=== PATIENT | female | born 1955 | race Caucasian/White ===

== ENCOUNTER 2019-06-19 12:56 | Inpatient (IN) | payer MEDICAID, OTHER ==
[2019-06-19] MEDS ORDERED: HYDROmorphone 1 MG/ML 1 ML SYRINGE IVP STA (13:20)
[2019-06-19] MEDS ORDERED: KETOROLAC 60 MG/2 ML VIAL IVP STA (13:21)
--- NOTE | 2019-06-19 13:23 | ED ---
General Adult HPI - General Chief complaint: Fall Stated complaint: Fall, hip injury Time Seen by Provider: 06/19/19 13:10 Source: patient, EMS, RN notes reviewed Mode of arrival: EMS Limitations: no limitations - History of Present Illness Initial comments: This is a 64-year-old female who presents emergency department after having fallen at work. Patient states she slipped on some yogurt fell onto her right hip. Patient states she was unable to get up she is unable to move the pain without excruciating right hip pain. Patient denies any other injury patient denies hitting her head patient denies neck pain patient denies any numbness weakness. Patient denies back pain. Patient denies any other extremity pain. - Related Data Home Medications Medication Instructions Recorded Confirmed Calcium Carbonate/Vitamin D3 3 tab PO HS 02/25/15 06/19/19 [Calcium 600-Vit D3 400 Tablet] Magnesium 200 mg PO HS 02/25/15 06/19/19 L.acidoph,Paracasei, B.lactis 1 cap PO HS 05/05/16 06/19/19 [Probiotic] Atorvastatin [Lipitor] 10 mg PO DAILY 06/19/19 06/19/19 Melatonin 5 mg PO HS 06/19/19 06/19/19 Allergies Allergy/AdvReac Type Severity Reaction Status Date / Time tramadol Allergy Itching Verified 06/19/19 13:17 Review of Systems ROS Statement: Those systems with pertinent positive or pertinent negative responses have been documented in the HPI. ROS Other: All systems not noted in ROS Statement are negative. Past Medical History Past Medical History: Cancer, Hyperlipidemia, Supraventricular Tachycardia (SVT) Additional Past Medical History / Comment(s): HX SVT RESOLVED WITH ABLATION, HX BREAST AND UTERINE CANCER, LUMBAR DDD- AFFECTS BOTH LEGS- LT IS WORSE History of Any Multi-Drug Resistant Organisms: None Reported Past Surgical History: Appendectomy, Breast Surgery, Cardiac Ablation, Hysterectomy, Tonsillectomy Additional Past Surgical History / Comment(s): BILAT MASTECTOMY, RT CTR, PAIN CLINIC PROCEDURES Past Anesthesia/Blood Transfusion Reactions: Family Hisory of Malignant Hyperthermia Additional Past Anesthesia/Blood Transfusion Reaction / Comment(s): NIECE HAS HX OF MALIGNANT HYPERTHERMIA Past Psychological History: Depression Smoking Status: Former smoker Past Alcohol Use History: None Reported Past Drug Use History: None Reported - Past Family History Mother Family Medical History: Cancer (Mother had colon cancer and she from dementia at the age of 77) Father Family Medical History: Cancer (Father at age of 70 from lung cancer) Brother(s) Family Medical History: Cancer (Patient has 4 brothers one of them was diagnosed with head and neck cancer and he is a survivor for the past 4 years) Sister(s) Family Medical History: No Reported History (Patient has 3 sisters no major medical problems) Son(s) Family Medical History: No Reported History (Patient has 2 sons no major medical problems) General Exam - General Exam Comments Initial Comments: GENERAL: Patient is well-developed and well-nourished. Patient is nontoxic and well- hydrated and is in moderate distress. ENT: Neck is soft and supple. No significant lymphadenopathy is noted. Neck has full range of motion without eliciting any pain. EYES: The sclera were anicteric and conjunctiva were pink and moist. Extraocular movements were intact and pupils were equal round and reactive to light. Eyelids were unremarkable. PULMONARY: Unlabored respirations. Good breath sounds bilaterally. No audible rales rhonchi or wheezing was noted. CARDIOVASCULAR: There is a regular rate and rhythm without any murmurs gallops or rubs. ABDOMEN: Soft and nontender with normal bowel sounds. SKIN: Skin is clear with no lesions or rashes and otherwise unremarkable. NEUROLOGIC: Patient is alert and oriented x3. Cranial nerves II through XII are grossly intact. Motor and sensory are also intact. Normal speech, volume and content. Symmetrical smile. MUSCULOSKELETAL: Patient has lateral right hip tenderness to palpation. Any movement at all ca uses significant pain in the hip. Unable to assess fully because of the pain LYMPHATICS: No significant lymphadenopathy is noted PSYCHIATRIC: Normal psychiatric evaluation. Limitations: no limitations Course Vital Signs 06/19/19 06/19/19 06/19/19 13:08 14:19 15:34 Temperature 98.2 F 98.0 F Pulse Rate 82 78 87 Respiratory 16 18 18 Rate Blood Pressure 137/80 138/87 138/87 O2 Sat by Pulse 98 99 98 Oximetry Medical Decision Making - Medical Decision Making Right hip fracture intertrochanteric. I spoke with Dr. Felipe Wang will admit her and I will consult Dr. Najera. EKG shows normal sinus rhythm at 88 bpm SC interval is 150 QRS is 102 QT interval 38 QTC is 469. Patient's EKG shows no ST segment elevation or depression or T wave abnormalities are noted. - Lab Data Result diagrams: 06/19/19 14:55 06/19/19 14:55 Lab Results 06/19/19 06/19/19 06/19/19 Range/Units 14:55 14:55 14:55 WBC 11.8 H (3.8-10.6) k/uL RBC 4.24 (3.80-5.40) m/uL Hgb 13.0 (11.4-16.0) gm/dL Hct 38.7 (34.0-46.0) % MCV 91.3 (80.0-100.0) fL MCH 30.7 (25.0-35.0) pg MCHC 33.6 (31.0-37.0) g/dL RDW 12.4 (11.5-15.5) % Plt Count 237 (150-450) k/uL Neutrophils % 82 % Lymphocytes % 10 % Monocytes % 5 % Eosinophils % 1 % Basophils % 2 % Neutrophils # 9.6 H (1.3-7.7) k/uL Lymphocytes # 1.1 (1.0-4.8) k/uL Monocytes # 0.6 (0-1.0) k/uL Eosinophils # 0.2 (0-0.7) k/uL Basophils # 0.2 (0-0.2) k/uL PT 10.0 (9.0-12.0) sec INR 0.9 (<1.2) APTT 19.7 L (22.0-30.0) sec Sodium 136 L (137-145) mmol/L Potassium 4.6 (3.5-5.1) mmol/L Chloride 104 (98-107) mmol/L Carbon Dioxide 23 (22-30) mmol/L Anion Gap 9 mmol/L BUN 22 H (7-17) mg/dL Creatinine 0.62 (0.52-1.04) mg/dL Est GFR (CKD-EPI)AfAm >90 (>60 ml/min/1.73 sqM) Est GFR (CKD-EPI)NonAf >90 (>60 ml/min/1.73 sqM) Glucose 110 H (74-99) mg/dL Calcium 9.7 (8.4-10.2) mg/dL Total Bilirubin 0.5 (0.2-1.3) mg/dL AST 30 (14-36) U/L ALT 12 (9-52) U/L Alkaline Phosphatase 95 (38-126) U/L Total Protein 7.6 (6.3-8.2) g/dL Albumin 4.5 (3.5-5.0) g/dL Disposition Clinical Impression: Intertrochanteric fracture of right hip Disposition: ADMITTED IP TO THIS [facility] Time of Disposition: 15:03
--- NOTE | 2019-06-19 14:12 | XR ---
EXAMINATION TYPE: XR Hip RT and AP Pelvis DATE OF EXAM: 06/19/2019 COMPARISON: NONE HISTORY: Trauma and pain TECHNIQUE: A single AP view of the pelvis is obtained. Two views of the right hip are obtained. FINDINGS: There is an intertrochanteric right proximal femoral fracture with resulting varus deformi ty. No dislocation. Postop changes noted at the lumbosacral junction. Bone mineralization is reduced. IMPRESSION: Intertrochanteric right femoral fracture.
[2019-06-19 15:04] LABS: Basophils # (A) 0.2 k/uL (0-0.2); Basophils % (A) 2 %; Eosinophils # (A) 0.2 k/uL (0-0.7); Eosinophils % (A) 1 %; HCT 38.7 % (34.0-46.0); Lymphocytes # (A) 1.1 k/uL (1.0-4.8); Lymphocytes % (A) 10 %; MCH 30.7 pg (25.0-35.0); MCHC 33.6 g/dL (31.0-37.0); MCV 91.3 fL (80.0-100.0); Mean Platelet Volume 7.4; Monocytes # (A) 0.6 k/uL (0-1.0); Monocytes % (A) 5 %; Neutrophils # (A) 9.6 k/uL (1.3-7.7); Neutrophils % (A) 82 %; Platelet Count 237 k/uL (150-450); RBC 4.24 m/uL (3.80-5.40); RDW 12.4 % (11.5-15.5); WBC 11.8 k/uL (3.8-10.6)
[2019-06-19] MEDS ORDERED: SODIUM CHLORIDE 0.9% 1,000 ML IV ONE (15:04)
[2019-06-19 15:11] LABS: ALT 12 U/L (9-52); AST 30 U/L (14-36); African American GFR (CKD) >90 (>60 ml/min/1.73 sqM); Albumin 4.5 g/dL (3.5-5.0); Alkaline Phosphatase 95 U/L (38-126); Anion Gap 9 mmol/L; Blood Urea Nitrogen 22 mg/dL (7-17); Calcium 9.7 mg/dL (8.4-10.2); Carbon Dioxide 23 mmol/L (22-30); Chloride 104 mmol/L (98-107); Glucose 110 mg/dL (74-99); Potassium 4.6 mmol/L (3.5-5.1); Sodium 136 mmol/L (137-145); Total Bilirubin 0.5 mg/dL (0.2-1.3); Total Protein 7.6 g/dL (6.3-8.2)
[2019-06-19 15:24] LABS: INR 0.9 (<1.2)
--- NOTE | 2019-06-19 15:26 | XR ---
EXAMINATION TYPE: XR chest 1V portable DATE OF EXAM: 06/19/2019 COMPARISON: 02/09/2016 HISTORY: Chest pain. Hip fracture. TECHNIQUE: Single frontal view of the chest is obtained. FINDINGS: Old healed fracture deformities of the right posterior mid ribs. New diffuse mild pulmonar y vascular congestion. Cardiomediastinal silhouette is upper limits of normal. No focal consolidation , pleural effusion or pneumothorax. IMPRESSION: New fluid overload with mild pulmonary vascular congestion throughout.
[2019-06-19 15:29] LABS: Partial Thromboplastin Time 19.7 sec (22.0-30.0)
[2019-06-19 16:03] VITALS: BMI 28.6
[2019-06-19] MEDS: HYDROmorphone 1 MG/ML 1 ML SYRINGE IVP PRN ×2 (17:19→22:33)
--- NOTE | 2019-06-19 17:54 | P.HPOR ---
History of Present Illness H&P Date: 06/19/19 Chief Complaint: Right hip fracture 64-year-old patient who slipped and fell on the floor earlier today injuring her right hip. She was found to have a intertrochanteric fracture of the right hip. She was admitted for probable surgical intervention. She reports no other c urrent orthopedic complaints. Review of Systems Constitutional: Reports as per HPI Past Medical History Past Medical History: Cancer, Hyperlipidemia, Supraventricular Tachycardia (SVT) Additional Past Medical History / Comment(s): HX SVT RESOLVED WITH ABLATION, HX BREAST AND UTERINE CANCER, LUMBAR DDD- AFFECTS BOTH LEGS- LT IS WORSE History of Any Multi-Drug Resistant Organisms: None Reported Past Surgical History: Appendectomy, Breast Surgery, Cardiac Ablation, Hysterectomy, Tonsillectomy Additional Past Surgical History / Comment(s): BILAT MASTECTOMY, RT CTR, PAIN CLINIC PROCEDURES Past Anesthesia/Blood Transfusion Reactions: Family Hisory of Malignant Hyperthermia Additional Past Anesthesia/Blood Transfusion Reaction / Comment(s): NIECE HAS HX OF MALIGNANT HYPERTHERMIA Past Psychological History: Depression Smoking Status: Former smoker Past Alcohol Use History: None Reported Past Drug Use History: None Reported - Past Family History Mother Family Medical History: Cancer (Mother had colon cancer and she from dementia at the age of 77) Additional Family Medical History / Comment(s): Mother had colon cancer. She from dementia at the age of 77yrs. Father Family Medical History: Cancer (Father at age of 70 from lung cancer) Additional Family Medical History / Comment(s): Father at the age of 70yrs with lung cancer. Brother(s) Family Medical History: Cancer (Patient has 4 brothers one of them was diagnosed with head and neck cancer and he is a survivor for the past 4 years) Additional Family Medical History / Comment(s): Brother had head and neck cancer. He is a survivor. Sister(s) Family Medical History: No Reported History (Patient has 3 sisters no major medical problems) Son(s) Family Medical History: No Reported History (Patient has 2 sons no major medical problems) Medications and Allergies Home Medications Medication Instructions Recorded Confirmed Type Calcium Carbonate/Vitamin D3 3 tab PO HS 02/25/15 06/19/19 History [Calcium 600-Vit D3 400 Tablet] Magnesium 200 mg PO HS 02/25/15 06/19/19 History L.acidoph,Paracasei, B.lactis 1 cap PO HS 05/05/16 06/19/19 History [Probiotic] Atorvastatin [Lipitor] 10 mg PO DAILY 06/19/19 06/19/19 History Melatonin 5 mg PO HS 06/19/19 06/19/19 History Allergies Allergy/AdvReac Type Severity Reaction Status Date / Time tramadol Allergy Itching Verified 06/19/19 13:17 Physical Examination Osteopathic Statement: *. No significant issues noted on an osteopathic structu ral exam other than those noted in the History and Physical/Consult. There is shortening and external rotation of the right lower extremity. There is diffuse tenderness about the right hip girdle. There is severe pain with any attempted range of motion of the right hip. Gentle log rolling of the left hip is pain-free. Distal neurovascular exams are intact both lower extremities. Results - Labs Labs: Abnormal Lab Results - Last 24 Hours (Table) 06/19/19 06/19/19 06/19/19 Range/Units 14:55 14:55 14:55 WBC 11.8 H (3.8-10.6) k/uL Neutrophils # 9.6 H (1.3-7.7) k/uL APTT 19.7 L (22.0-30.0) sec Sodium 136 L (137-145) mmol/L BUN 22 H (7-17) mg/dL Glucose 110 H (74-99) mg/dL H & H 06/19/19 Range/Units 14:55 Hgb 13.0 (11.4-16.0) gm/dL Hct 38.7 (34.0-46.0) % Coagulation 06/19/19 Range/Units 14:55 INR 0.9 (<1.2) Result Diagrams: 06/19/19 14:55 06/19/19 14:55 - Diagnostic results Hip x-ray: image reviewed (Right hip intertrochanteric fracture) Assessment and Plan Assessment: Right hip intertrochanteric fracture Plan: We will proceed with trochanteric nailing right hip tomorrow. I did review the procedure, risks, complications and recovery with both the patient and her . They understood the recommendation. They were agreeable with the procedure. Consent will be obtained. All questions were answered to their satisfaction. Time with Patient: Less than 30
[2019-06-20] MEDS: HYDROmorphone 1 MG/ML 1 ML SYRINGE IVP PRN ×3 (05:37→17:46)
--- NOTE | 2019-06-20 12:44 | P.CONS ---
History of Present Illness - Reason for Consult Consult date: 06/20/19 Medical clearance for surgery medical management Requesting physician: Pantera Wang - Chief Complaint Right hip fracture, osteoporosis, breast cancer, hyperlipidemia - History of Present Illness 64-year-old female one of Dr. Najera's patient with past medical history of breast cancer and uterine cancer post bilateral mastectomy and total hysterectomy who also known to have history of SVT post-ablation therapy Dr. Blanco previously with no sign of arrhythmia lately. Patient slip and fall at home landed on her right hip developed to have severe pain in the groin area not been able to stand up ambulate and walk with worsening pain ended up coming to [facility] emergency department at [facility] x-ray of the hip showed intratrochanteric fracture. Patient was admitted to Dr. Wang service and we will plan to go for open reduction internal fixation today. 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 No chest pain or angina, no episode of palpitation, no sign and symptom of significant shortness of breath or any complaint. Review of Systems CONSTITUTIONAL: Well-developed no acute respiratory distress. EYES: No icterus sclerae, no conjunctivitis. EARS, NOSE, MOUTH, THROAT, and FACE: No sore throat, lymphadenopathy, carotid bruits or deformity. RESPIRATORY: No SOB cough or wheezes. CARDIOVASCULAR: No CP, Palpitation, PND, Orthopnea, or angina. GASTROINTESTINAL: No Abd pain, Nausea or vomiting, no Diarrhea or constipation, No GI Bleed, no distention or masses. GENITOURINARY: Negative for Hematuria or UTI, no kidney stones. INTEGUMENT/BREAST: Negative for any muscular injury with mild osteoarthritis.. HEMATOLOGIC/LYMPHATIC: Negative for bleed or purpura. MUSCULOSKELTAL: Negative for Myalgia or arthralgia. Positive right hip pain and discomfort NEURLOGICAL: No LOC, Sz or syncope, blurred vision dizziness or abnormality.. BEHAVIORAL/PSYCH: Negative. ENDOCRINE: Negative. Past Medical History Past Medical History: Cancer, Hyperlipidemia, Supraventricular Tachycardia (SVT) Additional Past Medical History / Comment(s): HX SVT RESOLVED WITH ABLATION, HX BREAST AND UTERINE CANCER, LUMBAR DDD- AFFECTS BOTH LEGS- LT IS WORSE History of Any Multi-Drug Resistant Organisms: None Reported Past Surgical History: Appendectomy, Breast Surgery, Cardiac Ablation, Hysterectomy, Tonsillectomy Additional Past Surgical History / Comment(s): BILAT MASTECTOMY, RT CTR, PAIN CLINIC PROCEDURES Past Anesthesia/Blood Transfusion Reactions: Family Hisory of Malignant Hyperthermia Additional Past Anesthesia/Blood Transfusion Reaction / Comm: NIECE HAS HX OF MALIGNANT HYPERTHERMIA Past Psychological History: Depression Smoking Status: Former smoker Past Alcohol Use History: None Reported Past Drug Use History: None Reported - Past Family History Mother Family Medical History: Cancer (Mother had colon cancer and she from dementia at the age of 77) Additional Family Medical History / Comment(s): Mother had colon cancer. She from dementia at the age of 77yrs. Father Family Medical History: Cancer (Father at age of 70 from lung cancer) Additional Family Medical History / Comment(s): Father at the age of 70yrs with lung cancer. Brother(s) Family Medical History: Cancer (Patient has 4 brothers one of them was diagnosed with head and neck cancer and he is a survivor for the past 4 years) Additional Family Medical History / Comment(s): Brother had head and neck cancer. He is a survivor. Sister(s) Family Medical History: No Reported History (Patient has 3 sisters no major medi guzman problems) Son(s) Family Medical History: No Reported History (Patient has 2 sons no major medical problems) Medications and Allergies Home Medications Medication Instructions Recorded Confirmed Type Calcium Carbonate/Vitamin D3 3 tab PO HS 02/25/15 06/19/19 History [Calcium 600-Vit D3 400 Tablet] Magnesium 200 mg PO HS 02/25/15 06/19/19 History L.acidoph,Paracasei, B.lactis 1 cap PO HS 05/05/16 06/19/19 History [Probiotic] Atorvastatin [Lipitor] 10 mg PO DAILY 06/19/19 06/19/19 History Melatonin 5 mg PO HS 06/19/19 06/19/19 History Allergies Allergy/AdvReac Type Severity Reaction Status Date / Time tramadol Allergy Itching Verified 06/19/19 13:17 Physical Exam Vitals: Vital Signs Temp Pulse Pulse Resp BP BP Pulse Ox 06/19/19 19:42 99.1 F 85 18 106/75 95 06/19/19 17:29 98.7 F 85 16 116/73 97 09/11/19 15:34 98.0 F 87 18 138/87 98 06/19/19 14:19 78 18 138/87 99 06/19/19 13:08 98.2 F 82 16 137/80 98 Intake and Output 06/19/19 06/19/19 06/20/19 14:59 22:59 06:59 Intake Total 240 240 Output Total 1300 Balance -1060 240 Intake: Oral 240 240 Output: Urine 1300 Other: Voiding Method Indwelling Catheter Weight 75.659 kg General Appearance: Alert, cooperative, no distress, appears stated age. Neck HEENT: Supple, no lymphadenopathy, no thyroid enlargement, no carotid bruits. Lungs: Clear to auscultation without crackles or wheezes no rhonchi, no deformity. Chest Wall: Chest wall normal expansion with deep inspiration no tenderness and no deformity was found on exam, no costochondral pain or discomfort. Heart: Regular rate and rhythm, S1, S2 normal, no murmur, rub or gallop. Back: Symmetric, no curvature, ROM normal, no CVA tenderness. Abdomen: Soft, non-tender, bowel sounds active all four quadrants, no masses, no organomegaly. Extremities: Right hip is externally rotated much shorter than the left side with significant pain and discomfort and swelling in the groin area compared to the left side with typical sign and symptom of fracture. Pulses: 2+ and symmetric. Skin: Skin color, texture, tugor normal, no rashes or lesions. Neurologic: Alert oriented x3 cranial nerves II through XII intact, no motor deficit, no abnormal balance or gait. Results CBC & Chem 7: 06/19/19 14:55 06/19/19 14:55 Labs: Abnormal Lab Results - Last 24 Hours (Table) 06/19/19 06/19/19 06/19/19 Range/Units 14:55 14:55 14:55 WBC 11.8 H (3.8-10.6) k/uL Neutrophils # 9.6 H (1.3-7.7) k/uL APTT 19.7 L (22.0-30.0) sec Sodium 136 L (137-145) mmol/L BUN 22 H (7-17) mg/dL Glucose 110 H (74-99) mg/dL Assessment and Plan Plan: 1 right hip fracture with intratrochanteric fracture patient will be going for open reduction internal fixation, no absolute contraindication for surgery, no need for any further desiccation for this type of surgery, patient will be watch hemodynamically after surgery. Even patient was seen cardiology up till few years ago for her SVT no cardiac testing lately but no sign and symptoms ongoing I don't see any reason to do any stress test or echo before this surgery. 2 severe osteoporosis: Review bone density from 2014 showed T score below -2.7, patient is very hesitant about biphosphonate and up till now had refused this medication. Apparently had seen Dr. Corin Luis in the past and was prescribed Forteo refused to take it. A dressing with patient and her the value of osteoporosis treatment for further protection against smaller injury causing fracture or compression vertebrae patient is against it at this point. 3 hyperlipidemia: Has been on atorvastatin 10 mg daily resume medication. 4 history of SVT: Post ablation was seen cardiology has not been on any beta michelle lately no sign of arrhythmia EKG will be reviewed this time before surgery. 5 GI prophylaxis: Patient will be on Pepcid 20 mg daily. 6 DVT prophylaxis: Patient will be on aspirin on heparin subcutaneous after surgery. CODE STATUS: Full code. Dr. Wang thank you very much for the consult patient is very clear for surgery from medical standpoint if I can be any further help to please let me know.
[2019-06-20] MEDS ORDERED: IV FLUID CONTINUATION 1,000 ML IV ONE (12:51)
[2019-06-20] MEDS ORDERED: ONDANSETRON 4 MG/2 ML VIAL IVP ONE ×2 (13:07→15:36)
[2019-06-20] MEDS: MIDAZOLAM (PF) 2 MG/2 ML VIAL IV ONE ×2 (13:26→13:50)
[2019-06-20] MEDS ORDERED: fentaNYL (PF) 50 MCG/ML 2 ML AMP IV ONE (13:29)
[2019-06-20] MEDS ORDERED: PHENYLEPHRINE-0.9% NACL SYG 1 MG/10 ML SYRINGE ONE (13:44)
[2019-06-20] MEDS ORDERED: fentaNYL (PF) 50 MCG/ML 2 ML AMP ONE (13:44)
[2019-06-20] MEDS ORDERED: ePHEDrine SULFATE/0.9% NACL/PF 50 MG/5 ML SYRINGE IV ONE (13:44)
[2019-06-20] MEDS ORDERED: MIDAZOLAM 2 MG/2 ML VIAL ONE (13:44)
[2019-06-20] MEDS ORDERED: PROPOFOL 10 MG/ML 20 ML VIAL IV ONE (13:44)
[2019-06-20] MEDS ORDERED: SODIUM CHLORIDE 0.9% 100 ML with ceFAZolin 2,000 MG IV ONE ×2 (13:53)
[2019-06-20] MEDS ORDERED: LACTATED RINGERS 1,000 ML IV ONE (14:15)
[2019-06-20] MEDS ORDERED: ceFAZolin 1,000 MG in SODIUM CHLORIDE 0.9% 1,000 ML IRRIGATION ONE (15:05)
--- NOTE | 2019-06-20 15:10 | P.OP ---
Date of Procedure: 06/20/19 Preoperative Diagnosis: Right hip intertrochanteric fracture Postoperative Diagnosis: Same Procedure(s) Performed: Trochanteric nailing right hip intertrochanteric fracture Implants: Synthes 11 mm/125 titanium cannulated trochanteric femoral [id number] mm with a 11 x 90 mm helical blade and a 36 mm distal locking screw Anesthesia: spinal Surgeon: Pantera Wang Estimated Blood Loss (ml): 30 Pathology: none sent Condition: stable Disposition: PACU Indications for Procedure: 64-year-old patient seen with a right hip intertrochanteric fracture. I recommended trochanteric nailing. I discussed the procedure, risks, complications and recovery. The patient was agreeable and consent was obtained. Operative Findings: See description of procedure Description of Procedure: The patient was taken to the operative suite. The patient underwent a spinal anesthetic by the department of anesthesia. The patient was transferred to the [place] table. The patient received preoperative IV antibiotics. The left lower extremity is placed in a well-leg hyman. The right lower chest placed in longitudinal traction with adduction and slight internal rotation. C-arm was brought into the operative field confirming near anatomic alignment of the fracture. The C-arm was pulled back. The right hip was prepped and draped in the normal sterile orthopedic fashion. I made an incision beginning at the tip of the greater trochanter extending distally sharply through skin measuring approximately 4 cm. I dissected down to the IT band. I incised the IT band. I reduced the guidewire into the proximal trochanteric tip. C-arm confirmed adequate positioning in the guidewires introduced. I checked the position in AP and lateral intraoperative imaging of the guidewires adequate position. I now created an entry hole with a soft tissue protector. I now introduced a 11 mm x 170 mm 1 and 25 trochanteric nail and tapped down the position. This was confirmed on AP and lateral operative imaging be adequately position. I now with the Jose Carlos Serrano made a skin incision for placement of our helical blade. The guidewires introduced and we confirmed adequate positioning into the head neck complex. We reamed over the guidewire introduced the helical blade with good fixation noted. We locked our helical blade set screw. I now used the outrigger to make an incision for distal locking screw. The guide passed into position and appropriate distal locking screw hole was made. A 36 mm distal locking screw was introduced with good fixation and purchase noted. The entire our goal was now removed. I evaluated entire construct under AP and lateral operative imaging noted adequate positioning of the components. Spot films were obtained to document that. All wounds were irrigated. The IT band was repaired with #1 Vicryl. The subcu soft tissues of all 3 incisions were with 2-0 Vicryl. The skin is proximal with running subcuticular sutures with Steri-Strips and skin glue. Sterile dressings were applied. The patient was awakened transferred to a bed and then recovery having tolerated the procedure well.
[2019-06-20] MEDS ORDERED: HYDROcodone/APAP 5-325MG 1 EACH TAB PO PRN (15:11)
[2019-06-20] MEDS ORDERED: NALOXONE 0.4 MG/ML 1 ML VIAL IV PRN (15:11)
--- NOTE | 2019-06-20 15:25 | FL ---
EXAMINATION TYPE: FL guidance operating room, XR Hip Limited RT DATE OF EXAM: 06/20/2019 CLINICAL HISTORY: Right hip fracture. TECHNIQUE: Fluoroscopy. Limited intraoperative views right hip. COMPARISON: Pelvic and hip xray from yesterday. FINDINGS: Fluoroscopic guidance was provided during open reduction internal fixation procedure perfo rmed by Dr. Wang. A total of 33 seconds of fluoroscopic time was utilized during the procedure and two spot intraoperative fluoroscopic images are acquired. Images acquired show placement of femoral fixating nisa with distal transverse screw and femoral neck fixating screw through displaced intertrochanteric fracture right femur. Satisfactory alignment is se en after reduction and fixation. IMPRESSION: As Above.
[2019-06-20] MEDS ORDERED: HYDROmorphone 1 MG/ML 1 ML SYRINGE IVP ONE ×2 (15:36→15:45)
[2019-06-20] MEDS ORDERED: MEPERIDINE 50 MG/ML SYRINGE IVP ONE (15:45)
[2019-06-20] MEDS: LACTATED RINGERS 1,000 ML IV SCH (15:55)
[2019-06-20] MEDS: ONDANSETRON 4 MG/2 ML VIAL IVP PRN (17:44)
[2019-06-20 18:24] LABS: Basophils % (A) 0 %; Eosinophils # (A) 0.1 k/uL (0-0.7); Eosinophils % (A) 1 %; HCT 35.7 % (34.0-46.0); HGB 11.8 gm/dL (11.4-16.0); Lymphocytes # (A) 1.1 k/uL (1.0-4.8); Lymphocytes % (A) 11 %; MCH 30.5 pg (25.0-35.0); MCV 92.6 fL (80.0-100.0); Mean Platelet Volume 7.5; Monocytes # (A) 0.5 k/uL (0-1.0); Monocytes % (A) 5 %; Neutrophils # (A) 8.1 k/uL (1.3-7.7); Neutrophils % (A) 82 %; Platelet Count 190 k/uL (150-450); RBC 3.85 m/uL (3.80-5.40); RDW 13.7 % (11.5-15.5); WBC 9.9 k/uL (3.8-10.6)
[2019-06-20] MEDS: MAGNESIUM OXIDE 400 MG TAB PO SCH (20:30)
[2019-06-20] MEDS: MELATONIN 5 MG TABLET PO SCH (20:30)
[2019-06-20] MEDS: CALCIUM CARB-VIT D 500MG-200UN 1 EACH TAB PO SCH (20:30)
[2019-06-20] MEDS: LACTOBACILLUS ACIDOPH & BULGAR 1 EACH PACKET PO SCH (20:30)
[2019-06-20] MEDS: HYDROcodone/APAP 5-325MG 1 EACH TAB PO PRN (20:30)
[2019-06-20] MEDS: SENNOSIDES-DOCUSATE SODIUM 1 EACH TAB PO SCH (20:30)
[2019-06-20] MEDS: HYDROmorphone 0.5 MG/0.5 ML SYRINGE IVP PRN (22:49)
[2019-06-21] MEDS: HYDROcodone/APAP 5-325MG 1 EACH TAB PO PRN ×4 (05:00→23:09)
[2019-06-21] MEDS: LACTATED RINGERS 1,000 ML IV SCH ×2 (05:01→16:01)
[2019-06-21] MEDS: ENOXAPARIN 40 MG/0.4 ML SYRINGE SQ SCH (08:01)
[2019-06-21] MEDS: ATORVASTATIN 10 MG TAB PO SCH (08:01)
--- NOTE | 2019-06-21 12:46 | P.PN ---
Progress Note - Text Progress Note Date: 06/21/19 Patient seen sitting up in chair. She reports some pain in her right hip although it is better than preoperatively at this point. She has no new complaints. Her incisions are stable. Gentle log rolling of her hip is without significant pain. Homans and John or negative. Distal neurovascular exam is intact. Impression: Status post trochanteric nailing right hip Plan: DVT prophylaxis Medical management Physical therapy
--- NOTE | 2019-06-21 13:40 | P.CONS ---
History of Present Illness - Chief Complaint Walking difficulty - History of Present Illness I had the opportunity see patient for inpatient rehab consultation with regard to walking difficulty. Patient was admitted June 19 status post slip and fall at home and right hip pain. X-ray demonstrated intertrochanteric Fracture. Gibson Wang June 20 underwent IT nail. Seen by Dr. Braswell for medical. Chest x-ray demonstrates mild congestion. PT reports minimal assistance for functional mo bility. OT reports supervision for upper dressing and moderate assistance for lower dressing, minimal assistance for bathing and toileting and minimal moderate assistance functional mobility. Previous functional history as elicited from patient: 64-year-old right-handed white female who is lives in one floor home with . retired. 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 Describes independent with cooking, laundry, driving, standing shower and gait without device. Dr. Najera is regular doctor. Denies tobacco but has rare drink. Family history of father with cancer. Review of Systems Review of systems: ENT: Denies sneezes or discharge. Eyes: Denies discharge or photophobia. Cardiac: Denies chest pain or palpitation. Pulmonary: Denies cough or shortness of breath. Breast: Denies discharge or lumps. Gastrointestinal: Denies nausea, emesis, constipation, diarrhea. Genitourinary: Denies discharge or frequency. Musculoskeletal: Right hip discomfort. Neurologic: Denies motor or sensory change. Endocrine: Denies shakes or sweats. Oncology: Denies cancers. Dermatologic: Denies rash, itching, pruritus. ALLERGY/immunology: Denies sneezes, rashes. Past Medical History Past Medical History: Cancer, Hyperlipidemia, Supraventricular Tachycardia (SVT) Additional Past Medical History / Comment(s): HX SVT RESOLVED WITH ABLATION, HX BREAST AND UTERINE CANCER, LUMBAR DDD- AFFECTS BOTH LEGS- LT IS WORSE History of Any Multi-Drug Resistant Organisms: None Reported Past Surgical History: Appendectomy, Breast Surgery, Cardiac Ablation, Hysterectomy, Tonsillectomy Additional Past Surgical History / Comment(s): BILAT MASTECTOMY, RT CTR, PAIN CLINIC PROCEDURES Past Anesthesia/Blood Transfusion Reactions: Family Hisory of Malignant Hyperthermia Additional Past Anesthesia/Blood Transfusion Reaction / Comm: NIECE HAS HX OF MALIGNANT HYPERTHERMIA Past Psychological History: Depression Smoking Status: Former smoker Past Alcohol Use History: None Reported Past Drug Use History: None Reported - Past Family History Mother Family Medical History: Cancer (Mother had colon cancer and she from dementia at the age of 77) Additional Family Medical History / Comment(s): Mother had colon cancer. She from dementia at the age of 77yrs. Father Family Medical History: Cancer (Father at age of 70 from lung cancer) Additional Family Medical History / Comment(s): Father at the age of 70yrs with lung cancer. Brother(s) Family Medical History: Cancer (Patient has 4 brothers one of them was diagnosed with head and neck cancer and he is a survivor for the past 4 years) Additional Family Medical History / Comment(s): Brother had head and neck cancer. He is a survivor. Sister(s) Family Medical History: No Reported History (Patient has 3 sisters no major medical problems) Son(s) Family Medical History: No Reported History (Patient has 2 sons no major medical problems) Medications and Allergies Home Medications Medication Instructions Recorded Confirmed Type Calcium Carbonate/Vitamin D3 3 tab PO HS 02/25/15 06/19/19 History [Calcium 600-Vit D3 400 Tablet] Magnesium 200 mg PO HS 02/25/15 06/19/19 History L.acidoph,Paracasei, B.lactis 1 cap PO HS 05/05/16 06/19/19 History [Probiotic] Atorvastatin [Lipitor] 10 mg PO DAILY 06/19/19 06/19/19 History Melatonin 5 mg PO HS 06/19/19 06/19/19 History Sennosides-Docusate Sodium 2 each PO HS tab 06/21/19 Rx [Senokot-S] Allergies Allergy/AdvReac Type Severity Reaction Status Date / Time tramadol Allergy Itching Verified 06/19/19 13:17 Physical Exam Vitals: Vital Signs Temp Pulse Pulse Resp BP Pulse Ox 06/21/19 08:00 16 06/21/19 07:05 98.5 F 91 16 107/65 92 L 06/21/19 02:38 98.7 F 91 18 105/64 92 L 06/20/19 23:00 18 06/20/19 20:14 98.3 F 90 16 103/63 95 06/20/19 19:20 18 06/20/19 18:00 90 107/62 06/20/19 17:45 80 121/72 06/20/19 17:30 84 118/71 06/20/19 17:15 81 120/67 06/20/19 17:00 84 113/70 06/20/19 16:45 75 98/64 06/20/19 16:30 88 102/65 06/20/19 16:15 97.5 F L 89 16 107/66 95 06/20/19 15:45 84 14 112/59 96 06/20/19 15:30 96 16 117/61 92 L 06/20/19 15:24 97.7 F 100 16 118/66 92 L Intake and Output 06/20/19 06/21/19 06/21/19 22:59 06:59 14:59 Intake Total 1200 296 Output Total 130 1425 300 Balance 1070 -1425 -4 Intake: IV 1200 Oral 296 Output: Urine 100 1425 300 Estimated Blood Loss 30 Other: Voiding Method Indwelling Catheter Indwelling Catheter Bedside Commode Bedpan # Voids 1 Skin: Good color, texture, turgor. General: Medium build and comfortable appearance. Head: Normocephalic, atraumatic. Eyes: Symmetric. Pupils equal round. Ears: Symmetric. Hearing within normal limits. Mouth: Clear. Neck: Supple. Carotid without bruit. Cardiac: Regular rate and rhythm. Lungs: Clear anteriorly and posteriorly. Abdomen: Soft active nontender. Extremities: Normal tone. Neurological: Mental status: Alert, cooperative, pleasant. Cranial nerves: Symmetric facial tone and trapezius. Motor: Normal strength and isolation all 4 limbs. But unable to elevate right leg due to discomfort and hip. Sensation: Intact throughout. DTRs: Symmetric and equal throughout. Mobility: Sits and stands with assistance. Results CBC & Chem 7: 06/20/19 17:53 06/19/19 14:55 Labs: Abnormal Lab Results - Last 24 Hours (Table) 06/20/19 Range/Units 17:53 Neutrophils # 8.1 H (1.3-7.7) k/uL Assessment and Plan Plan: Impression: 1. Walking only. 2. Right hip IT fracture status post nail. 3. Disability. 4. History of SVT. 5. History of cancer. Comments and plan: At this time PT and OT are ongoing. Safety concerns noted. Have discussed possible inpatient rehab with patient and both seem agreeable. Orthopedist is apparently discussed possible transfer for inpatient rehab on Monday which seems reasonable.
--- NOTE | 2019-06-21 15:04 | P.PN ---
Subjective Progress Note Date: 06/21/19 64-year-old female one of Dr. Najera's patient with past medical history of breast cancer and uterine cancer post bilateral mastectomy and total hysterectomy who also known to have history of SVT post-ablation therapy Dr. Blanco previously with no sign of arrhythmia lately. Patient slip and fall at home landed on her right hip developed to have severe pain in the groin area not been able to stand up ambulate and walk with worsening pain ended up coming to the emergency department at [facility] x-ray of the hip showed intratrochanteric fracture. Patient was admitted to Dr. Wang service and we will plan to go for open reduction internal fixation today. 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 No chest pain or angina, no episode of palpitation, no sign and symptom of significant shortness of breath or any complaint. 06/21: Patient is status post trochanteric nailing right hip, postop day #1. The patient has had no postop complications. She is having some pain to the hip, expected. Today she will start working with physical therapy. Discussed discharge planning and she is interested in inpatient rehab and consult will be placed with Dr. Santiago. Patient has been afebrile, heart rate 97, blood pressure 113/60, pulse ox 92% on room air. Objective - Vital Signs Vital signs: Vital Signs Temp 98.5 F 06/21/19 07:05 Pulse 91 06/21/19 07:05 Resp 16 06/21/19 07:05 BP 107/65 06/21/19 07:05 Pulse Ox 92 L 06/21/19 07:05 Intake & Output 06/20/19 06/21/19 06/21/19 18:59 06:59 18:59 Intake Total 3000 Output Total 730 1425 Balance 2270 -1425 Intake: IV 3000 Output: Urine 700 1425 Estimated Blood Loss 30 Other: Voiding Method Indwelling Catheter Indwelling Catheter - Exam Review of Systems CONSTITUTIONAL: Well-developed no acute respiratory distress. Denies fever, denies chills EYES: No icterus sclerae, no conjunctivitis. EARS, NOSE, MOUTH, THROAT, and FACE: No sore throat, lymphadenopathy, carotid bruits or deformity. RESPIRATORY: No SOB cough or wheezes. CARDIOVASCULAR: No CP, Palpitation, PND, Orthopnea, or angina. GASTROINTESTINAL: No Abd pain, Nausea or vomiting, no Diarrhea or constipation, No GI Bleed, no distention or masses. GENITOURINARY: Negative for Hematuria or UTI, no kidney stones. INTEGUMENT/BREAST: Negative for any muscular injury with mild osteoarthritis.. HEMATOLOGIC/LYMPHATIC: Negative for bleed or purpura. MUSCULOSKELTAL: Negative for Myalgia or arthralgia. Positive right hip pain and discomfort NEURLOGICAL: No LOC, Sz or syncope, blurred vision dizziness or abnormality. BEHAVIORAL/PSYCH: Negative. ENDOCRINE: Negative. General Appearance: Alert, cooperative, no distress, appears stated age. Neck HEENT: Supple, no lymphadenopathy, no thyroid enlargement, no carotid bruits. Lungs: Clear to auscultation without crackles or wheezes no rhonchi, no deformity. Chest Wall: Chest wall normal expansion with deep inspiration no tenderness and no deformity was found on exam, no costochondral pain or discomfort. Heart: Regular rate and rhythm, S1, S2 normal, no murmur, rub or gallop. Back: Symmetric, no curvature, ROM normal, no CVA tenderness. Abdomen: Soft, non-tender, bowel sounds active all four quadrants, no masses, no organomegaly. Extremities: Right hip with small dressing in place. No breakthrough bleeding or drainage.. Pulses: 2+ and symmetric. Skin: Skin color, texture, tugor normal, no rashes or lesions. Neurologic: Alert oriented x3 cranial nerves II through XII intact, no motor deficit, no abnormal balance or gait. - Labs CBC & Chem 7: 06/20/19 17:53 06/19/19 14:55 Labs: Abnormal Lab Results - Last 24 Hours (Table) 06/20/19 Range/Units 17:53 Neutrophils # 8.1 H (1.3-7.7) k/uL Assessment and Plan Plan: 1 right hip fracture with intratrochanteric fracture. Status post trochanteric nailing right hip. Postoperative day #1. Patient has had no postop complication. Continue Lovenox for DVT prophylaxis. Continue incentive spirometry to reduce incidence of atelectasis and hospital-acquired pneumonia. Continue current pain management per orthopedics. PT and OT. 2 severe osteoporosis: Review bone density from 2015 showed T score below -2.7, patient is very hesitant about biphosphonate and up till now had refused this medication. Apparently had seen Dr. Corin Luis in the past and was prescribed Forteo refused to take it. Addressed with patient and her the value of osteoporosis treatment for further protection against smaller injury causing fracture or compression vertebrae patient is against it at this point. 3 hyperlipidemia: Has been on atorvastatin 10 mg daily resume medication. 4 history of SVT: Post ablation was seen cardiology has not been on any beta michelle lately no sign of arrhythmia EKG will be reviewed this time before surge ry. 5 GI prophylaxis: Patient will be on Pepcid 20 mg daily. 6 DVT prophylaxis: Patient will be on aspirin on heparin subcutaneous after surgery. CODE STATUS: Full code. Discharge plan: Consult with Dr. Santiago for possible inpatient rehab Impression and plan of care have been directed as dictated by the signing physician. Tia Whelan nurse practitioner acting as scribe for signing physician.
[2019-06-21] MEDS: MAGNESIUM OXIDE 400 MG TAB PO SCH (21:06)
[2019-06-21] MEDS: SENNOSIDES-DOCUSATE SODIUM 1 EACH TAB PO SCH (21:07)
[2019-06-21] MEDS: MELATONIN 5 MG TABLET PO SCH (21:08)
[2019-06-21] MEDS: CALCIUM CARB-VIT D 500MG-200UN 1 EACH TAB PO SCH (21:08)
[2019-06-21] MEDS: LACTOBACILLUS ACIDOPH & BULGAR 1 EACH PACKET PO SCH (21:09)
[2019-06-22] MEDS: LACTATED RINGERS 1,000 ML IV SCH ×2 (04:21→07:27)
[2019-06-22] MEDS: HYDROcodone/APAP 5-325MG 1 EACH TAB PO PRN ×3 (05:29→17:50)
[2019-06-22] MEDS: ONDANSETRON 4 MG/2 ML VIAL IVP PRN (07:30)
[2019-06-22] MEDS: ATORVASTATIN 10 MG TAB PO SCH (07:30)
[2019-06-22] MEDS: ENOXAPARIN 40 MG/0.4 ML SYRINGE SQ SCH (07:30)
--- NOTE | 2019-06-22 11:10 | P.PN ---
Progress Note - Text Progress Note Date: 06/22/19 Patient seen lying in bed comfortably. She states that her discomfort seems to be improving. She did minimally ambulate. Her pain is under control. Incisions appear stable. Gentle log rolling of the causes only mild discomfort. Distal neurovascular exam intact. Negative John, negative Homans. Impression: Status post trochanteric nailing right hip Plan: Medical management DVT prophylaxis Physical therapy Plan transfer to rehab on Monday
--- NOTE | 2019-06-22 12:26 | P.PN ---
Subjective Progress Note Date: 06/22/19 64-year-old female one of Dr. Najera's patient with past medical history of breast cancer and uterine cancer post bilateral mastectomy and total hysterectomy who also known to have history of SVT post-ablation therapy Dr. Blanco previously with no sign of arrhythmia lately. Patient slip and fall at home landed on her right hip developed to have severe pain in the groin area not been able to stand up ambulate and walk with worsening pain ended up coming to the emergency department at [facility] x-ray of the hip showed intratrochanteric fracture. Patient was admitted to Dr. Wang service and we will plan to go for open reduction internal fixation today. 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 No chest pain or angina, no episode of palpitation, no sign and symptom of significant shortness of breath or any complaint. 06/21: Patient is status post trochanteric nailing right hip, postop day #1. The patient has had no postop complications. She is having some pain to the hip, expected. Today she will start working with physical therapy. Discussed discharge planning and she is interested in inpatient rehab and consult will be placed with Dr. Santiago. Patient has been afebrile, heart rate 97, blood pressure 113/60, pulse ox 92% on room air. 06/22: Patient is status post trochanter nail right hip postop day #2. Patient has not had any postoperative applications. She was seen by Dr. Bishop in his record that she'll be going to inpatient rehab facility on Monday. Patient is resting sitting at the bedside without any complaints or concerns. Dressing is clean and dry. Patient is a 25% weightbearing to the right lower extremity. Patient has been afebrile and hemodynamically stable. Review Of Systems: Constitutional: No fever, no chills, no night sweats. No weight change. No weakness, fatigue or lethargy. No daytime sleepiness. EENT: No headache. No blurred vision or double vision, no loss of vision. No loss of Hearing, no ringing in the ears, no dizziness. No nasal drainage or congestion. No epistaxis. No sore throat. Lungs: No shortness of breath, cough, no sputum production. No wheezing. Cardiovascular: No chest pain, no lower extremity edema. No palpitations. No paroxysmal nocturnal dyspnea. No orthopnea. No lightheadedness or dizziness. No syncopal episodes. Abdominal: no abdominal discomfort. No nausea, vomiting. no diarrhea. No constipation. No bloody or tarry stools. no loss of appetite. Genitourinary: No dysuria, no frequency, urgency. No urinary retention. Musculoskeletal: No myalgias. No muscle weakness, no gait dysfunction, no frequent falls. No back pain. No neck pain. Integumentary: No wounds, no lesions. No rash or pruritus. No unusual bruising. No change in hair or nails. Neurologic: No aphasia. No facial droop. No change in mentation. No head injury. No headache. No paralysis. No paresthesia. Psychiatric: No depression. No anxiety. No mood swings. Endocrine: No abnormal blood sugars. No weight change. No excessive sweating or thirst. Objective - Vital Signs Vital signs: Vital Signs Temp 98.2 F 06/22/19 08:08 Pulse 98 06/22/19 08:08 Resp 12 06/22/19 08:08 BP 103/49 06/22/19 08:08 Pulse Ox 85 L 06/22/19 08:08 Intake & Output 06/21/19 06/22/19 06/22/19 18:59 06:59 18:59 Intake Total 296 480 Output Total 300 Balance -4 480 Intake: Oral 296 480 Output: Urine 300 Other: Voiding Method Bedside Commode Bedside Commode Bedpan Bedpan # Voids 1 2 1 - Exam General Appearance: Alert, cooperative, no distress, appears stated age. Neck HEENT: Supple, no lymphadenopathy, no thyroid enlargement, no carotid bruits. Lungs: Clear to auscultation without crackles or wheezes no rhonchi, no deformity. Chest Wall: Chest wall normal expansion with deep inspiration no tenderness and no deformity was found on exam, no costochondral pain or discomfort. Heart: Regular rate and rhythm, S1, S2 normal, no murmur, rub or gallop. Back: Symmetric, no curvature, ROM normal, no CVA tenderness. Abdomen: Soft, non-tender, no rebound or rigidity, no hepatosplenomegaly. Extremities: Right incisional dressing clean and dry, all other extremities normal, atraumatic, no cyanosis or edema. Pulses: 2+ and symmetric. Skin: Skin color, texture, tugor normal, no rashes or lesions. Neurologic: Alert oriented x3 cranial nerves II through XII intact, no motor deficit, - Labs CBC & Chem 7: 06/20/19 17:53 06/19/19 14:55 Assessment and Plan Plan: 1 right hip fracture with intratrochanteric fracture. Status post trochanteric nailing right hip. Postoperative day #2. Patient has had no postop complication. Continue incentive spirometry to reduce incidence of atelectasis and hospital-acquired pneumonia. Continue current pain management per orthopedics. PT and OT. 2 severe osteoporosis: Review bone density from 2015 showed T score below -2.7, patient is very hesitant about biphosphonate and up till now had refused this medication. Apparently had seen Dr. Corin Luis in the past and was prescribed Forteo refused to take it. Addressed with patient and her the value of osteoporosis treatment for further protection against smaller injury causing fracture or compression vertebrae patient is against it at this point. 3 hyperlipidemia: atorvastatin 10 mg daily. 4 history of SVT: Post ablation was seen cardiology has not been on any beta michelle lately no sign of arrhythmia EKG will be reviewed this time before surgery. 5 GI prophylaxis: Pepcid 20 mg daily. 6 DVT prophylaxis: Lovenox 40 mg daily CODE STATUS: Full code. Discharge plan: Inpatient rehab on Monday Impression and plan of care have been directed as dictated by the signing physician. Lissette Bianchi nurse practitioner acting as scribe for signing physician.
[2019-06-22 15:55] LABS: Basophils # (A) 0.1 k/uL (0-0.2); Basophils % (A) 1 %; Eosinophils # (A) 0.2 k/uL (0-0.7); Eosinophils % (A) 2 %; HCT 30.6 % (34.0-46.0); Lymphocytes # (A) 1.9 k/uL (1.0-4.8); Lymphocytes % (A) 25 %; MCH 28.8 pg (25.0-35.0); MCHC 31.2 g/dL (31.0-37.0); MCV 92.2 fL (80.0-100.0); Mean Platelet Volume 7.4; Monocytes # (A) 0.5 k/uL (0-1.0); Monocytes % (A) 6 %; Neutrophils # (A) 4.9 k/uL (1.3-7.7); Neutrophils % (A) 64 %; Platelet Count 183 k/uL (150-450); RBC 3.32 m/uL (3.80-5.40); RDW 12.2 % (11.5-15.5); WBC 7.6 k/uL (3.8-10.6)
[2019-06-22 16:04] LABS: HGB 9.6 gm/dL (11.4-16.0)
[2019-06-22] MEDS: HYDROmorphone 0.5 MG/0.5 ML SYRINGE IVP PRN ×2 (18:32→22:41)
[2019-06-22] MEDS: LACTOBACILLUS ACIDOPH & BULGAR 1 EACH PACKET PO SCH (22:14)
[2019-06-22] MEDS: CALCIUM CARB-VIT D 500MG-200UN 1 EACH TAB PO SCH (22:14)
[2019-06-22] MEDS: SENNOSIDES-DOCUSATE SODIUM 1 EACH TAB PO SCH (22:14)
[2019-06-22] MEDS: MELATONIN 5 MG TABLET PO SCH (22:15)
[2019-06-22] MEDS: MAGNESIUM OXIDE 400 MG TAB PO SCH (22:15)
[2019-06-23] MEDS: HYDROcodone/APAP 5-325MG 1 EACH TAB PO PRN ×4 (01:32→17:52)
[2019-06-23] MEDS: LACTATED RINGERS 1,000 ML IV SCH ×3 (06:48→22:29)
[2019-06-23] MEDS: ENOXAPARIN 40 MG/0.4 ML SYRINGE SQ SCH (07:11)
[2019-06-23] MEDS: ATORVASTATIN 10 MG TAB PO SCH (07:11)
--- NOTE | 2019-06-23 09:17 | P.PN ---
Subjective Progress Note Date: 06/23/19 64-year-old female one of Dr. Najera's patient with past medical history of breast cancer and uterine cancer post bilateral mastectomy and total hysterectomy who also known to have history of SVT post-ablation therapy Dr. Blanco previously with no sign of arrhythmia lately. Patient slip and fall at home landed on her right hip developed to have severe pain in the groin area not been able to stand up ambulate and walk with worsening pain ended up coming to the emergency department at [facility] x-ray of the hip showed intratrochanteric fracture. Patient was admitted to Dr. Wang service and we will plan to go for open reduction internal fixation today. 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 No chest pain or angina, no episode of palpitation, no sign and symptom of significant shortness of breath or any complaint. 06/21: Patient is status post trochanteric nailing right hip, postop day #1. The patient has had no postop complications. She is having some pain to the hip, expected. Today she will start working with physical therapy. Discussed discharge planning and she is interested in inpatient rehab and consult will be placed with Dr. Santiago. Patient has been afebrile, heart rate 97, blood pressure 113/60, pulse ox 92% on room air. 06/22: Patient is status post trochanter nail right hip postop day #2. Patient has not had any postoperative complications. She was seen by Dr. Bishop in his record that she'll be going to inpatient rehab facility on Monday. Patient is resting sitting at the bedside without any complaints or concerns. Dressing is clean and dry. Patient is a 25% weightbearing to the right lower extremity. Patient has been afebrile and hemodynamically stable. 06/23: Patient is status post trochanter nail right hip postop day #3. Patient signed any postop operative complications. Patient is 25% weightbearing to the right lower extremity. She has been afebrile and hemodynamically stable. Dressing is clean dry and intact. Patient is anxious to start rehab so she can get back home. Patient states that her pain has been controlled. She does have some muscle spasms to the left knee however she is declining any other medications at this time. Patient is feeling emotional today due to the restrictions on weightbearing. Review Of Systems: Constitutional: No fever, no chills, no night sweats. No weight change. No weakness, fatigue or lethargy. No daytime sleepiness. EENT: No headache. No blurred vision or double vision, no loss of vision. No loss of Hearing, no ringing in the ears, no dizziness. No nasal drainage or congestion. No epistaxis. No sore throat. Lungs: No shortness of breath, cough, no sputum production. No wheezing. Cardiovascular: No chest pain, no lower extremity edema. No palpitations. No p aroxysmal nocturnal dyspnea. No orthopnea. No lightheadedness or dizziness. No syncopal episodes. Abdominal: no abdominal discomfort. No nausea, vomiting. no diarrhea. No constipation. No bloody or tarry stools. no loss of appetite. Genitourinary: No dysuria, no frequency, urgency. No urinary retention. Musculoskeletal: No myalgias. No muscle weakness, no gait dysfunction, no frequent falls. No back pain. No neck pain. Integumentary: No wounds, no lesions. No rash or pruritus. No unusual bruising. No change in hair or nails. Neurologic: No aphasia. No facial droop. No change in mentation. No head injury. No headache. No paralysis. No paresthesia. Psychiatric: No depression. No anxiety. No mood swings. Endocrine: No abnormal blood sugars. No weight change. No excessive sweating or thirst. Objective - Vital Signs Vital signs: Vital Signs Temp 97.9 F 06/23/19 07:43 Pulse 80 06/23/19 07:43 Resp 16 06/23/19 07:43 BP 104/60 06/23/19 07:43 Pulse Ox 92 L 06/23/19 07:43 Intake & Output 06/22/19 06/23/19 06/23/19 18:59 06:59 18:59 Other: Voiding Method Bedside Commode Bedside Commode Bedside Commode Bedpan Bedpan # Voids 1 - Exam General Appearance: Alert, cooperative, no distress, appears stated age. Neck HEENT: Supple, no lymphadenopathy, no thyroid enlargement, no carotid bruits. Lungs: Clear to auscultation without crackles or wheezes no rhonchi, no deformity. Chest Wall: Chest wall normal expansion with deep inspiration no tenderness and no deformity was found on exam, no costochondral pain or discomfort. Heart: Regular rate and rhythm, S1, S2 normal, no murmur, rub or gallop. Back: Symmetric, no curvature, ROM normal, no CVA tenderness. Abdomen: Soft, non-tender, no rebound or rigidity, no hepatosplenomegaly. Extremities: Right incisional dressing clean and dry, all other extremities normal, atraumatic, no cyanosis or edema. Pulses: 2+ and symmetric. Skin: Skin color, texture, tugor normal, no rashes or lesions. Neurologic: Alert oriented x3 cranial nerves II through XII intact, no motor deficit, - Labs CBC & Chem 7: 06/22/19 15:07 06/19/19 14:55 Labs: Abnormal Lab Results - Last 24 Hours (Table) 06/22/19 Range/Units 15:07 RBC 3.32 L (3.80-5.40) m/uL Hgb 9.6 L D (11.4-16.0) gm/dL Hct 30.6 L (34.0-46.0) % Assessment and Plan Plan: 1 right hip fracture with intratrochanteric fracture. Status post trochanteric nailing right hip. Postoperative day #3. Patient has had no postop complication. Continue incentive spirometry to reduce incidence of atelectasis and hospital-acquired pneumonia. Continue current pain management per orthopedics. PT and OT. Discussed with patient the use of muscle relaxers patient declined at this time. 2 severe osteoporosis: Review bone density from 2015 showed T score below -2.7, patient is very hesitant about biphosphonate and up till now had refused this medication. Apparently had seen Dr. Corin Luis in the past and was prescribed Forteo refused to take it. Addressed with patient and her the value of osteoporosis treatment for further protection against smaller injury causing fracture or compression vertebrae patient is against it at this point. 3 hyperlipidemia: atorvastatin 10 mg daily. 4 history of SVT: Post ablation was seen cardiology has not been on any beta michelle lately no sign of arrhythmia EKG will be reviewed this time before surgery. 5 GI prophylaxis: Pepcid 20 mg daily. 6 DVT prophylaxis: Lovenox 40 mg daily CODE STATUS: Full code. Discharge plan: Inpatient rehab on Monday Impression and plan of care have been directed as dictated by the signing physician. Lissette Bianchi nurse practitioner acting as scribe for signing physician.
--- NOTE | 2019-06-23 10:16 | P.PN ---
Progress Note - Text Progress Note Date: 06/23/19 Patient seen lying in bed comfortably. Patient still has some pain in the right hip area but slowly improving. Patient was only able to ambulate minimally with physical therapy. Incisions remain stable. There is no drainage. The thigh is soft. Homans and John negative. Distal neurovascular exam is intact. Impression: Status post trochanteric nailing right Plan: Medical management DVT prophylaxis Physical therapy Probable transfer to rehab tomorrow
[2019-06-23] MEDS: CALCIUM CARB-VIT D 500MG-200UN 1 EACH TAB PO SCH (21:37)
[2019-06-23] MEDS: SENNOSIDES-DOCUSATE SODIUM 1 EACH TAB PO SCH (21:37)
[2019-06-23] MEDS: MAGNESIUM OXIDE 400 MG TAB PO SCH (21:37)
[2019-06-23] MEDS: MELATONIN 5 MG TABLET PO SCH (21:37)
[2019-06-23] MEDS: LACTOBACILLUS ACIDOPH & BULGAR 1 EACH PACKET PO SCH (21:37)
[2019-06-24] MEDS: HYDROcodone/APAP 5-325MG 1 EACH TAB PO PRN ×2 (00:09→06:27)
[2019-06-24 07:55] VITALS: BP 96/60; RESP 16; TEMP 98.1
[2019-06-24] MEDS: ATORVASTATIN 10 MG TAB PO SCH (08:57)
[2019-06-24] MEDS: ENOXAPARIN 40 MG/0.4 ML SYRINGE SQ SCH (08:57)
--- NOTE | 2019-06-24 10:20 | P.PN ---
Progress Note - Text Progress Note Date: 06/24/19 Patient seen sitting up in bed. Patient reports her pain is improving. She still is having a difficult time ambulating. Incisions are stable. The thigh is soft. Gentle log rolling of the hip is without any substantial pain. Distal neurovascular exam is intact. Homans and John are both negative. Impression: Status post trochanteric nailing right hip Plan: Transfer to rehab today
--- NOTE | 2019-06-24 10:30 | P.DS ---
Providers Date of admission: 06/19/19 15:05 Expected date of discharge: 06/24/19 Attending physician: Pantera Wang Consults: 06/19/19 15:04 Consult Physician Urgent Consulting Provider: Sixto Braswell Reason/Comments: Medical clearance Do you want consulting provider notified?: Yes 06/21/19 10:27 Consult Physician Routine Consulting Provider: Harmeet Santiago Consult Reason/Comments: inpt rehab Do you want consulting provider notified?: Yes Primary care physician: Tanisha Najera Hospital Course: Date of admission: 06/19/2019 Date of discharge: 06/24/2019 Admission diagnosis: Right hip intertrochanteric fracture Discharge diagnosis: Status post trochanteric nailing right hip Attending physician: Pantera Wang DO Surgical procedure: Trochanteric nailing right hip Brief history: Patient is a 64-year-old with a history of right intertrochanteric hip fracture. I recommend intertrochanteric nailing. The patient was agreeable. Consent was obtained. Hospital course: Details the patient surgery can be found in the operative report. Patient tolerated the procedure well and was subsequently transported to orthopedic floor. Patient orthopedic and medical care was provided daily. Patient had daily laboratory tests performed for evaluation of overall blood counts. Patient had daily physical therapy to include strengthening, range of motion as well as education with walker ambulation. Patient was treated with Lovenox for the postoperative DVT prophylaxis during there inpatient stay. Patient noted to have a relatively uneventful postoperative course. Patient reported satisfactory pain control with oral pain medication by postoperative day 4. Patient continued to have difficulty with ambulation. The decision was made to transfer her to an inpatient rehabilitation facility. Discharge condition/disposition: Patient discharged to inpatient rehabilitation in stable and satisfactory condition. Discharge medications: Patient is prescribed home medications per medicine as well as appropriate oral analgesics and anticoagulants. Discharge instructions: 1. Wound care and infectious precautions, keep incision dry and covered while showering, no lotions, creams, moisturized. No soaking, tubs, pools, hot tubs. Do not scrub over the incision 2. Toe-touch weightbearing with walker/cane until follow-up 3. Ice when necessary. Do not exceed 20 minutes per hour with ice pack. 4. Utilize compression sleeve until seen first postoperative appointment. 5. Physical therapy for walker ambulation and strengthening- toe-touch weightbearing right lower extremity. 6. Pain meds and anticoagulations per recommendation 7. Pain medication has potential to cause constipation. Increase oral fluid and fiber intake. Contact primary care provider if you have not had a bowel movement within 48 hours after discharge. 8. No anti-inflammatory medication until discussed the first postoperative visit, this includes Motrin, Aleve, Mobic, diclofenac,. 9. Follow-up in [facility] in 2 weeks with Harmeet Lopez PA-C 10. Follow up with your primary care doctor 7-10 days after discharge. 11. Contact [facility] with any questions, Patient Condition at Discharge: Good Plan - Discharge Summary Discharge Rx Participant: No New Discharge Prescriptions: New Sennosides-Docusate Sodium [Senokot-S] 2 each PO HS tab Continue Calcium Carbonate/Vitamin D3 [Calcium 600-Vit D3 400 Tablet] 3 tab PO HS Magnesium 200 mg PO HS L.acidoph,Paracasei, B.lactis [Probiotic] 1 cap PO HS Atorvastatin [Lipitor] 10 mg PO DAILY Melatonin 5 mg PO HS Discharge Medication List Calcium Carbonate/Vitamin D3 [Calcium 600-Vit D3 400 Tablet] 3 tab PO HS 02/25/15 [History] Magnesium 200 mg PO HS 02/25/15 [History] L.acidoph,Paracasei, B.lactis [Probiotic] 1 cap PO HS 05/05/16 [History] Atorvastatin [Lipitor] 10 mg PO DAILY 06/19/19 [History] Melatonin 5 mg PO HS 06/19/19 [History] Sennosides-Docusate Sodium [Senokot-S] 2 each PO HS tab 06/21/19 [Rx] Follow up Appointment(s)/Referral(s): Tanisha Najera MD [Primary Care Provider] - 1 Week (after discharge from rehab) Leon Lopez PAC [PHYSICIAN DANCER OR CHOREOGRAPHER] - 2 Weeks Activity/Diet/Wound Care/Special Instructions: 1. Transfer to rehab today 2. Toe-touch weightbearing right lower extremity 3. 325 mg aspirin by mouth twice a day 4 weeks 4. Anthon 7.5 mg 1-2 by mouth every 6 hours when necessary pain 5. Follow-up as instructed 6. Contact office for any concerns or questions Discharge Disposition: TRANSFER TO SNF/ECF
[2019-06-24 11:45] VITALS: PULSE 100
[2019-06-24] MEDS ORDERED: IPRATROPIUM-ALBUTEROL 3 ML NEB INHALATION SCH (12:00)
--- NOTE | 2019-06-24 12:18 | P.PN ---
Subjective Progress Note Date: 06/24/19 64-year-old female one of Dr. Najera's patient with past medical history of breast cancer and uterine cancer post bilateral mastectomy and total hysterectomy who also known to have history of SVT post-ablation therapy Dr. Blanco previously with no sign of arrhythmia lately. Patient slip and fall at home landed on her right hip developed to have severe pain in the groin area not been able to stand up ambulate and walk with worsening pain ended up coming to the emergency department at [facility] x-ray of the hip showed intratrochanteric fracture. Patient was admitted to Dr. Wang service and we will plan to go for open reduction internal fixation today. 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 No chest pain or angina, no episode of palpitation, no sign and symptom of significant shortness of breath or any complaint. 06/21: Patient is status post trochanteric nailing right hip, postop day #1. The patient has had no postop complications. She is having some pain to the hip, expected. Today she will start working with physical therapy. Discussed discharge planning and she is interested in inpatient rehab and consult will be placed with Dr. Santiago. Patient has been afebrile, heart rate 97, blood pressure 113/60, pulse ox 92% on room air. 06/22: Patient is status post trochanter nail right hip postop day #2. Patient has not had any postoperative complications. She was seen by Dr. Bishop in his record that she'll be going to inpatient rehab facility on Monday. Patient is resting sitting at the bedside without any complaints or concerns. Dressing is clean and dry. Patient is a 25% weightbearing to the right lower extremity. Patient has been afebrile and hemodynamically stable. 06/23: Patient is status post trochanter nail right hip postop day #3. Patient signed any postop operative complications. Patient is 25% weightbearing to the right lower extremity. She has been afebrile and hemodynamically stable. Dressing is clean dry and intact. Patient is anxious to start rehab so she can get back home. Patient states that her pain has been controlled. She does have some muscle spasms to the left knee however she is declining any other medicatio ns at this time. Patient is feeling emotional today due to the restrictions on weightbearing. 06/24: Patient has had a decrease in her pulse ox down to 89%. Chest x-ray and DuoNeb treatments ordered. She is using incentive spirometry at 1500 ML's. She has been eating 100% of her meals.the patient has had a chronic cough is nonproductive.she denies any shortness of breath. Patient is cleared for discharge to [facility] for inpatient rehab. Chest x-ray reveals borderline heart size. Trace effusions with mild adjacent patchy atelectasis and/or consolidation. Correlate to exclude mild pulmonary vascular congestion. Objective - Vital Signs Vital signs: Vital Signs Temp 98.1 F 06/24/19 07:55 Pulse 89 06/24/19 07:55 Resp 16 06/24/19 07:55 BP 96/60 06/24/19 07:55 Pulse Ox 93 L 06/24/19 07:55 Intake & Output 06/23/19 06/24/19 06/24/19 18:59 06:59 18:59 Intake Total 600 Output Total 500 Balance 100 Intake: Intake, IV Titration 600 Amount Sodium Chloride 0.9% 100 600 ml @ 0 mls/hr IV .STK-MED ONE with ceFAZolin 2,000 mg Rx#:[id number] Output: Urine 500 Other: Voiding Method Bedside Commode Toilet # Voids 1 - Exam Review of Systems CONSTITUTIONAL: Well-developed no acute respiratory distress. Denies fever, denies chills EYES: No icterus sclerae, no conjunctivitis. EARS, NOSE, MOUTH, THROAT, and FACE: No sore throat, lymphadenopathy, carotid bruits or deformity. RESPIRATORY: No SOB or wheezes.reports cough CARDIOVASCULAR: No CP, Palpitation, PND, Orthopnea, or angina. GASTROINTESTINAL: No Abd pain, Nausea or vomiting, no Diarrhea or constipation, No GI Bleed, no distention or masses. GENITOURINARY: Negative for Hematuria or UTI, no kidney stones. INTEGUMENT/BREAST: Negative for any muscular injury with mild osteoarthritis.. HEMATOLOGIC/LYMPHATIC: Negative for bleed or purpura. MUSCULOSKELTAL: Negative for Myalgia or arthralgia. Positive right hip pain and discomfort NEURLOGICAL: No LOC, Sz or syncope, blurred vision dizziness or abnormality. BEHAVIORAL/PSYCH: Negative. ENDOCRINE: Negative. General Appearance: Alert, cooperative, no distress, appears stated age. Neck HEENT: Supple, no lymphadenopathy, no thyroid enlargement, no carotid bruits. Lungs: Clear to auscultation without crackles or wheezes no rhonchi, no deformity.no accessory muscle usage. No intercostal retractions. Chest Wall: Chest wall normal expansion with deep inspiration no tenderness and no deformity was found on exam, no costochondral pain or discomfort. Heart: Regular rate and rhythm, S1, S2 normal, no murmur, rub or gallop. Back: Symmetric, no curvature, ROM normal, no CVA tenderness. Abdomen: Soft, non-tender, bowel sounds active all four quadrants, no masses, no organomegaly. Extremities: Right hip with small dressing in place. No breakthrough bleeding or drainage. Pulses: 2+ and symmetric. Skin: Skin color, texture, tugor normal, no rashes or lesions. Neurologic: Alert oriented x3 cranial nerves II through XII intact, no motor deficit, no abnormal balance or gait. - Labs CBC & Chem 7: 06/22/19 15:07 06/19/19 14:55 Assessment and Plan Plan: 1. right hip fracture with intratrochanteric fracture. Status post trochanteric nailing right hip. Continue Lovenox for DVT prophylaxis. Continue incentive spirometry to reduce incidence of atelectasis and hospital-acquired pneumonia. Continue current pain management per orthopedics. PT and OT. 2. severe osteoporosis: Review bone density from 2015 showed T score below -2.7, patient is very hesitant about biphosphonate and up till now had refused this medication. Apparently had seen Dr. Corin Luis in the past and was prescribed Forteo refused to take it. Addressed with patient and her the value of osteoporosis treatment for further protection against smaller injury causing fracture or compression vertebrae patient is against it at this point. 3. hyperlipidemia: Has been on atorvastatin 10 mg daily resume medication. 4. history of SVT: Post ablation was seen cardiology has not been on any beta michelle lately no sign of arrhythmia EKG will be reviewed this time before surgery. 5. GI prophylaxis: Patient will be on Pepcid 20 mg daily. 6. DVT prophylaxis: Patient will be on aspirin on heparin subcutaneous after surgery. 7. Hypoxiawith chronic cough. Patient cleared for discharge to [facility]. CODE STATUS: Full code. Discharge plan: Consult with Dr. Santiago for possible inpatient rehab today Impression and plan of care have been directed as dictated by the signing physician. Tia Whelan nurse practitioner acting as scribe for signing physician.
--- NOTE | 2019-06-24 16:25 | XR ---
EXAMINATION TYPE: XR chest 2V DATE OF EXAM: 06/24/2019 COMPARISON: 06/19/2019 HISTORY: 64-year-old female pneumonia TECHNIQUE: AP and lateral views FINDINGS: Heart borderline enlarged. Mild vascular prominence. Possible trace effusion on the lateral view. Mil d patchy posterior basilar opacity also noted. IMPRESSION: Borderline heart size. Trace effusions suggested on the lateral view with mild adjacent patchy atelec tasis and/or consolidation. Correlate to exclude mild pulmonary vascular congestion.
== END 2019-06-24 14:47 | DRG 482 ==
LOC: EC 12:56 → 4SSUR 15:05
PROVIDERS: ADMIT Orthopaedic Surgery; ATTEND Orthopaedic Surgery
PROC: 0QH636Z Insertion of Intramedullary Internal Fixation Device into Right Upper Femur, Percutaneous Approach (ICD-10-PCS; principal; 2019-06-20 07:30)
DX: S72.141A Displaced intertrochanteric fracture of right femur, initial encounter for closed fracture (principal); M81.0 Age-related osteoporosis without current pathological fracture; E78.5 Hyperlipidemia, unspecified; F32.9 Major depressive disorder, single episode, unspecified; W01.0XXA Fall on same level from slipping, tripping and stumbling without subsequent striking against object, initial encounter; Z74.1 Need for assistance with personal care; R05 Cough; M62.838 Other muscle spasm; Y92.009 Unspecified place in unspecified non-institutional (private) residence as the place of occurrence of the external cause; Z79.899 Other long term (current) drug therapy; Z80.0 Family history of malignant neoplasm of digestive organs; Z80.1 Family history of malignant neoplasm of trachea, bronchus and lung; Z80.8 Family history of malignant neoplasm of other organs or systems; Z85.3 Personal history of malignant neoplasm of breast; Z85.42 Personal history of malignant neoplasm of other parts of uterus; Z87.891 Personal history of nicotine dependence; Z90.13 Acquired absence of bilateral breasts and nipples; Z90.710 Acquired absence of both cervix and uterus; Z88.5 Allergy status to narcotic agent; Z90.49 Acquired absence of other specified parts of digestive tract; Z90.89 Acquired absence of other organs; Z81.8 Family history of other mental and behavioral disorders
CPT/HCPCS: 36415; 71045; 71046; 73501; 73502; 80053; 85025; 85610; 85730; 93005; 94640; 96374; 96375; 99285

== ENCOUNTER → 2019-09-30 | Outpatient (CLI) | payer MEDICARE ==
--- NOTE | 2019-09-30 16:36 | BD ---
EXAMINATION TYPE: Axial Bone Density DATE OF EXAM: 09/30/2019 COMPARISON: 01/23/2015 CLINICAL HISTORY: 64-year-old female postmenopausal screening, osteoporosis Height: 62.7 IN Weight: 163 LBS FRAX RISK QUESTIONS: Family History (Parent hip fracture): YES FATHER History of Fracture in Adulthood: RT HIP FX AGE 65 Secondary Osteoporosis: 3. Menopause before 45: AGE 54 TOTAL HYST RISK FACTORS HISTORY OF: Hip Fracture (Right): AGE 64 Surgery to Spine/Hip(right): L-SPINE FUSION 2015; RT HIP SURGERY AGE 64 Family History of Osteoporosis: YES MOTHER Active: LIMITED Postmenopausal woman: TOTAL HYST AGE 54 MEDICATIONS: Additional Medications: CALCIUM, VIT D, MAGNESIUM, B12, MELATONIN, PROBIOTIC, Additional History: HAD BREAST CANCER AGE 44; UTERINE CANCER AGE 54 EXAM MEASUREMENTS: Bone mineral densitometry was performed using the Mashed Pixel System. PT HAD L-SPINE FUSION 2015 PT HAD RT HIP FRACTURE/SURGERY AGE 64 Bone mineral density about the L hip (g/cm2): 0.685 T Score values are as follows: -----L Neck: -2.5 -----L Total: -2.5 Bone mineral density has: Decreased -22.0% since study of: 01/23/2015 Bone mineral density about the L Wrist (g/cm2): 0.419 T Score values are as follows: -----Dist. R+U: -4.4 -----Prox. R+U: -3.4 -----Radius total: -4.2 Bone mineral density BASELINE IMPRESSION: Osteoporosis (T Score less than -2.5). There is increased fracture risk and therapy is usually indicated based on age. Re-Screen 1-2 years. NOTE: T-SCORE=SD OF THE YOUNG ADULT MEAN.
== END | disposition home or self-care (01) ==
LOC: RADBDWWP 09:09
PROVIDERS: ATTEND Family Medicine
DX: M81.0 Age-related osteoporosis without current pathological fracture (principal)
CPT/HCPCS: 77080

== ENCOUNTER → 2021-05-13 | Outpatient (CLI) | payer MEDICARE, OTHER ==
--- NOTE | 2021-05-13 13:27 | CT ---
EXAMINATION TYPE: CT chest wo con DATE OF EXAM: 05/13/2021 COMPARISON: None HISTORY: anterior to left side chest/rib pain post fall CT DLP: 372.6 mGycm, Automated exposure control for dose reduction was used. CONTRAST: Performed injected with 0 mL of Isovue 300. TECHNIQUE: Axial images were obtained at 5 mm thick sections. Reconstructed images are reviewed on [employer] computer in the coronal plane. FINDINGS: Portion of the thyroid visualized is normal. Minimal scattered infiltrate may be within the lingula and minimal infiltrate scattered within the pe riphery of the mid and upper lung de jesus. Findings are nonspecific. Consider atelectasis. Atypical pn eumonia could be considered. No enlarged mediastinal or hilar adenopathy is evident. The ascending aorta diameter at the level o f the main pulmonary artery is 3.3 cm. The main pulmonary artery diameter at the bifurcation is 2.6 cm. Bilateral breast prostheses are noted. Limited CT sections are obtained through the upper abdomen. Right adrenal gland is thickened at 1.2 c m. Very subtle nondisplaced fracture the anterior left sixth rib may be present. Series 8 image 70. IMPRESSIONS: 1. Subtle nondisplaced anterior left sixth rib fracture not excluded. No additional areas suspicious for fracture evident. 2. No pneumothorax. 3. There may be some mild lingular atelectasis. 4. Minimal additional infiltrate within the periphery of the mid and upper lung field is nonspecific. Consider atypical pneumonia.
== END | disposition home or self-care (01) ==
LOC: RADCTMAIN 07:19
PROVIDERS: ATTEND Family Medicine
DX: R07.9 Chest pain, unspecified (principal)
CPT/HCPCS: 71250

== ENCOUNTER → 2021-09-16 | Outpatient (CLI) | payer MEDICARE, OTHER ==
--- NOTE | 2021-09-16 13:52 | XR ---
EXAMINATION TYPE: XR chest 2V DATE OF EXAM: 09/16/2021 COMPARISON: 06/24/2019 HISTORY: Shortness of breath TECHNIQUE: Frontal and lateral views of the chest are obtained. FINDINGS: Scattered senescent parenchymal changes noted. Hyperinflation compatible with COPD. No evidence for infiltrate. No evidence for atelectasis. Heart size is stable. Mediastinal structures are stable and grossly unremarkable. No evidence for hilar prominence. Degenerative changes dorsal spine. IMPRESSION: 1. No evidence for acute pulmonary disease.
== END | disposition home or self-care (01) ==
LOC: RADXRMAIN 13:30
PROVIDERS: ATTEND Nurse Practitioner Gerontology
DX: R06.02 Shortness of breath (principal); R05.1 Acute cough
CPT/HCPCS: 71046

== ENCOUNTER → 2021-10-08 | Outpatient (CLI) | payer MEDICARE, OTHER ==
--- NOTE | 2021-10-08 10:50 | BD ---
EXAMINATION TYPE: Axial Bone Density DATE OF EXAM: 10/08/2021 COMPARISON: 09.30.2019 CLINICAL HISTORY: 66 YR OLD FEMALE......ICD-10 CODE: M81.0 OSTEOPOROSIS Height: 62.5 Weight: 176 FRAX RISK QUESTIONS: Family History (Parent hip fracture): YES History of Fracture in Adulthood: YES RISK FACTORS HISTORY OF: Hip Fracture ..YES, RT HIP AT AGE 64 Surgery to Spine AND RT HIP, SPINE FUSION AND RT HIP REPLACEMENT Family History of Osteoporosis: YES, FATHER AND MOTHER Postmenopausal woman: YES, AT AGE 54 YRS OLD, TOTAL HYST Poor Health: HEALTH ISSUES Hyperparathyroidism: NO Adrenal Insufficiency: NO MEDICATIONS: Osteoporosis Medications: YES, EVISTA AND FORTIO, FOR 10 YRS Additional Medications: LEXAPRO, STATIN FOR CHOLESTEROL, VIT D AND CALCIUM, Additional History: OSTEOPOROSIS, HX OF BREAST AND UTERINE CANCER, CHOLESTEROL, ANXIETY EXAM MEASUREMENTS: Bone mineral densitometry was performed using the [employer] System. Bone mineral density about the L hip (g/cm2): 0.710 T Score values are as follows: -----L Neck: -2.5 -----L Total: -2.4 Bone mineral density has: Increased 3.0% since study of: 09.30.2019 FRAX%s: THERE IS A 34.8% CHANCE FOR A MAJOR OSTEOPOROTIC FX AND A 7.2% FOR HIP......PROBABILITY F OR FX IN 10 YRS TIME Bone mineral density about the L Wrist (g/cm2): 0.416 T Score values are as follows: -----Dist. R+U: -3.8 -----Prox. R+U: -3.6 -----Radius total: -4.1 Bone mineral density has: Decreased -3.3% since study of: 09.30.2019 IMPRESSION: Osteoporosis NOTE: T-SCORE=SD OF THE YOUNG ADULT MEAN.
== END | disposition home or self-care (01) ==
LOC: RADBDWWP 09:58
PROVIDERS: ATTEND Family Medicine
DX: M81.0 Age-related osteoporosis without current pathological fracture (principal); Z78.0 Asymptomatic menopausal state
CPT/HCPCS: 77080

== ENCOUNTER → 2022-03-25 | Outpatient (CLI) | payer MEDICARE ==
[2022-03-25 18:10] LABS: Basophils # (A) 0.06 X 10*3/uL (0.00-0.10); Basophils % (A) 1.1 %; Eosinophils # (A) 0.11 X 10*3/uL (0.04-0.35); Eosinophils % (A) 2.1 %; HCT 39.6 % (37.2-46.3); HGB 12.7 g/dL (12.0-15.0); Immature Grans, Automated 0.2 %; Lymphocytes # (A) 2.62 X 10*3/uL (0.90-5.00); Lymphocytes % (A) 49.1 %; MCHC 32.1 g/dL (32.0-37.0); MCV 93.6 fL (80.0-97.0); Mean Platelet Volume 11.5 fL (9.5-12.2); Monocytes # (A) 0.42 X 10*3/uL (0.20-1.00); Monocytes % (A) 7.9 %; NRBC Per 100 WBC 0 /100 WBCS (0.0-0.0); Neutrophils # (A) 2.12 X 10*3/uL (1.80-7.70); Neutrophils % (A) 39.6 %; Platelet Count 229 X 10*3/uL (140-440); RBC 4.23 X 10*6/uL (4.10-5.20); RDW 12.3 % (11.5-14.5); WBC 5.34 X 10*3/uL (4.50-10.00)
[2022-03-25 19:46] LABS: ALT 12 U/L (8-44); AST 19 U/L (13-35); African American GFR (CKD) 88.4 (60.0-200.0); Albumin 4.6 g/dL (3.8-4.9); Alkaline Phosphatase 77 U/L (41-126); BUN/Creat Ratio 24.25 Ratio (12.00-20.00); Blood Urea Nitrogen 19.4 mg/dL (9.0-27.0); Calcium 9.6 mg/dL (8.7-10.3); Chloride 107 mmol/L (96-109); Chol/HDL Ratio 3.78 Ratio; Globulin 2.7 g/dL (1.6-3.3); Glucose 102 mg/dL (70-110); LDL Cholesterol,Calculated 115.7 mg/dL (0.0-131.0); Non-African American GFR(CKD) 76.3 (60.0-200.0); Potassium 4.5 mmol/L (3.5-5.5); Sodium 142 mmol/L (135-145); Total Protein 7.3 g/dL (6.2-8.2)
== END | disposition home or self-care (01) ==
LOC: LABWHC1 11:36
PROVIDERS: ATTEND Family Medicine
DX: E78.5 Hyperlipidemia, unspecified (principal); M81.0 Age-related osteoporosis without current pathological fracture; G62.9 Polyneuropathy, unspecified; R53.82 Chronic fatigue, unspecified
CPT/HCPCS: 36415; 80053; 80061; 82306; 84443; 85025

== ENCOUNTER → 2023-07-12 | Outpatient (CLI) | payer MEDICARE ==
[2023-07-12 16:10] LABS: Blood Urea Nitrogen 17.4 mg/dL (9.0-27.0); Carbon Dioxide 27.7 mmol/L (21.6-31.8); Chloride 104 mmol/L (96-109); Potassium 4.6 mmol/L (3.5-5.5); Sodium 142 mmol/L (135-145)
[2023-07-12 16:25] LABS: HCT 39.9 % (37.2-46.3); HGB 12.8 d/dL (12.0-15.0); MCHC 32.1 d/dL (32.0-37.0); MCV 93.4 FL (80.0-97.0); Mean Platelet Volume 11.2 FL (9.5-12.2); NRBC Per 100 WBC 0 X 10*3/uL (0.00-0.01); Platelet Count 225 X 10*3/uL (140-440); RBC 4.27 X 10*6/uL (4.10-5.20); RDW 12.8 % (11.5-14.5); WBC 5.82 X 10*3/uL (4.50-10.00)
== END | disposition home or self-care (01) ==
LOC: LABPAT 12:40
PROVIDERS: ATTEND Internal Medicine
DX: Z01.812 Encounter for preprocedural laboratory examination (principal); E78.2 Mixed hyperlipidemia; R06.02 Shortness of breath
CPT/HCPCS: 80051; 82565; 84520; 85027

== ENCOUNTER → 2023-07-12 | Outpatient (CLI) | payer MEDICARE ==
[2023-07-12 16:15] LABS: ALT 16 U/L (8-44); AST 18 U/L (13-35); Chol/HDL Ratio 3.92 Ratio; LDL Cholesterol,Calculated 106.1 mg/dL (0.0-131.0)
== END | disposition home or self-care (01) ==
LOC: LABWHC1 12:54
PROVIDERS: ATTEND Internal Medicine Interventional Cardiology
DX: E78.2 Mixed hyperlipidemia (principal)
CPT/HCPCS: 36415; 80061; 84450; 84460

== ENCOUNTER 2023-07-17 11:38 | Day surgery (SDC) | payer MEDICARE ==
[2023-07-11 11:32] VITALS: BMI 31.7
[~2023-07-17 11:38] MED LIST: ALPRAZolam 0.25 MG TAB PO PRN; ALPRAZolam 0.5 MG TAB PO PRN; ASPIRIN 325 MG TAB PO STA; ATORVASTATIN 80 MG TAB PO STA; HEPARIN SODIUM,PORCINE (1 ML) 2,500 UNIT in SODIUM CHLORIDE 0.9% 250 ML IRRIGATION PRN; HEPARIN SODIUM,PORCINE 10,000 UNIT in SODIUM CHLORIDE 0.9% 1,000 ML IRRIGATION PRN; NITROGLYCERIN SL TABS 0.4 MG TAB SUBLINGUAL PRN; SODIUM CHLORIDE 0.9% 1,000 ML in EMPTY BAG 1 BAG IV SCH
[2023-07-17] MEDS ORDERED: SODIUM CHLORIDE 0.9% 1,000 ML IV ONE (11:48)
[2023-07-17 12:08] LABS: Basophils # (A) 0.1 k/uL (0-0.2); Basophils % (A) 1 %; Eosinophils # (A) 0.2 k/uL (0-0.7); Eosinophils % (A) 3 %; HCT 41.8 % (34.0-46.0); HGB 13.7 gm/dL (11.4-16.0); Lymphocytes # (A) 2.4 k/uL (1.0-4.8); Lymphocytes % (A) 32 %; MCH 30.7 pg (25.0-35.0); MCHC 32.8 g/dL (31.0-37.0); MCV 93.6 fL (80.0-100.0); Mean Platelet Volume 8.3; Monocytes # (A) 0.3 k/uL (0-1.0); Monocytes % (A) 5 %; Neutrophils # (A) 4.2 k/uL (1.3-7.7); Neutrophils % (A) 58 %; Platelet Count 247 k/uL (150-450); RBC 4.46 m/uL (3.80-5.40); RDW 12.6 % (11.5-15.5); WBC 7.3 k/uL (3.8-10.6)
[2023-07-17 12:22] LABS: African American GFR (CKD) >90 (>60 ml/min/1.73 sqM); Anion Gap 10 mmol/L; Blood Urea Nitrogen 21 mg/dL (7-17); Calcium 10.2 mg/dL (8.4-10.2); Carbon Dioxide 24 mmol/L (22-30); Chloride 104 mmol/L (98-107); Glucose 106 mg/dL (74-99); Non-African American GFR(CKD) >90 (>60 ml/min/1.73 sqM); Potassium 4.2 mmol/L (3.5-5.1); Sodium 138 mmol/L (137-145)
[2023-07-17] MEDS ORDERED: HEPARIN SODIUM 1,000 UN/ML (10ML VL) ONE ×2 (13:23→14:30)
[2023-07-17] MEDS ORDERED: fentaNYL (PF) 50 MCG/ML 2 ML AMP ONE (13:23)
[2023-07-17] MEDS ORDERED: VERAPAMIL 2.5 MG/ML 2 ML AMP ONE (13:23)
[2023-07-17] MEDS: fentaNYL (PF) 50 MCG/ML 2 ML AMP IVP ONE ×2 (13:35→14:20)
[2023-07-17] MEDS: MIDAZOLAM 2 MG/2 ML VIAL IVP ONE ×2 (13:35→14:20)
[2023-07-17] MEDS ORDERED: LIDOCAINE 1% INJ 10MG/ML (20 ML MDV) SQ ONE (13:36)
[2023-07-17] MEDS ORDERED: VERAPAMIL SYRINGE (5 MG/10 ML) INTRAARTER ONE (13:38)
[2023-07-17] MEDS: HEPARIN SODIUM 1,000 UN/ML (10ML VL) IV ONE ×4 (13:39→14:23)
[2023-07-17] MEDS ORDERED: NITROGLYCERIN 1000MCG/10ML SYRINGE INTRACORON ONE (13:56)
[2023-07-17] MEDS ORDERED: CLOPIDOGREL 75 MG TAB PO ONE (14:00)
[2023-07-17] MEDS ORDERED: IOPAMIDOL-370 100ML BTL INJ ONE ×2 (14:03→14:32)
[2023-07-17] MEDS ORDERED: CLOPIDOGREL 75 MG TAB ONE (14:04)
[2023-07-17] MEDS ORDERED: HEPARIN SODIUM 1,000 UN/ML (10ML VL) IV ONE (14:32)
[2023-07-17] MEDS ORDERED: ACETAMINOPHEN TAB 325 MG TAB PO PRN (14:45)
[2023-07-17] MEDS ORDERED: RX INFO: IV CONTRAST WAS GIVEN 1 EACH MISC MISCELLANE PRN (14:45)
[2023-07-17] MEDS ORDERED: MAG HYDROX/AL HYDROX/SIMETH 30 ML CUP PO PRN (14:45)
[2023-07-17] MEDS ORDERED: ZOLPIDEM 5 MG TAB PO PRN (14:45)
[2023-07-17] MEDS ORDERED: NITROGLYCERIN SL TABS 0.4 MG TAB SUBLINGUAL PRN (14:45)
[2023-07-17] MEDS ORDERED: ATROPINE SULFATE 0.1 MG/ML 10ML SYRINGE IV PRN (14:45)
[2023-07-17] MEDS ORDERED: SODIUM CHLORIDE 0.9% 1,000 ML in EMPTY BAG 1 BAG IV SCH (14:45)
[2023-07-17 19:32] VITALS: BP 107/67; PULSE 93; RESP 16; TEMP 98.6
[2023-07-17] MEDS ORDERED: ATORVASTATIN 80 MG TAB PO SCH (21:00)
--- NOTE | 2023-07-17 21:55 | P.PRCINT ---
Percutaneous Coronary Int. - Percutaneous Coronary Intervention Percutaneous Coronary Intervention: PROCEDURES PERFORMED: Left heart catheterization, bilateral coronary angiography, ultrasound guided arterial access, iFR RCA, PCI RCA with a 2.75 x 15mm Xience MARIE, post dilated with a 3.5 NC balloon, IVUS RCA INDICATION: Abnormal stress test CONSENT:I have discussed the risks, benefits and alternative therapies for the above-mentioned procedure and for both sedation/analgesia as well as necessary blood product administration, if indicated, as they pertain to this patient. The patient has indicated understanding and acceptance of the risks and procedures discussed. PROCEDURE: After the risks, benefits and alternatives of the above mentioned procedure explained in detail with the patient, informed consent was obtained. Patient was taken to the catheterization lab and prepped and draped in usual fashion. Ultrasound guidance was used to assess for arterial access. 1% lidocaine was used to anesthetize the right radial artery. A 6-Mont[place]erratian sheath was placed in the right radial artery using modified Seldinger technique and ultrasound guidance. Left coronary angiography was performed with a 5-[place]serratian JL 3.5 catheter and right coronary angiography was performed with a 5-[place]serr[place]ian JR5 as well as 6FR AR2 catheter in various views. A 5-[place]serr[place]ian FR5 catheter was inserted into the left ventricle and pressure measurements were obtained. Ischemia was noted in the lateral wall and not clearly related to the RCA/PLV and therefore decision was made to perform iFR of the RCA. Heparin was given. A 6FR AR 2 guide catheter was used to engage the RCA. A 0.014 pressure wire was advanced into the proximal RCA/ aorta and normalized. It was then advanced 1 cm distal to the RCA lesion and iFR was performed and was abnormal at 0.75. Therefore the decision was made to perform PCI of the RCA. A 0.014 BMW wire was advanced into the distal RCA. Predilation was performed with a 2.0 x 12mm NC balloon. Next IVUS showed reference vessel 2.75-3.0mm. Next a 2.75 x 15mm Xience MARIE was placed at the ostium. The stent was flared with the 2.75 balloon. Next IVUS showed good distal sizing however underexpanded stent proximally. Therefore the proximal stent was post dilated with a 3.5 x 12mm NC balloon and flared. Repeat IVUS showed excellent stent apposition and well expanded with excellent sizing distally, no dissection. Final angiograms were performed. Pre intervention there was 95% stenosis and ASHER 3 flow and post intervention there was < 10% stenosis and ASHER 3 flow. The right radial sheath was removed and a TR band was placed with hemostasis achieved. The patient tolerated the procedure well. Patient was transported back to the post catheterization holding area in stable condition. Conscious Sedation: Patient was monitored under the direct supervision of myself for conscious sedation using Versed and fentanyl for a total duration of 50 minutes HEMODYNAMICS: Aorta: 137/68 LV: 139/6, LVEDP 16 SELECTIVE CORONARY ARTERIOGRAPHY: LEFT MAIN: The left main is a large caliber vessel which bifurcates into the LAD and circumflex. There is no significant stenosis. LEFT ANTERIOR DESCENDING CORONARY ARTERY: LAD is a large caliber vessel which reaches the apex. There is mild mid LAD 30% stenosis and otherwise mild luminal irregularities. LEFT CIRCUMFLEX CORONARY ARTERY: Left circumflex is a moderate caliber vessel with a 30% mid circumflex stenosis. OM1 is moderate caliber with no significant stenosis. RIGHT CORONARY ARTERY: The right coronary artery is a moderate caliber vessel which gives off a PDA and PLV branch and is the dominant vessel. There is a 95% ostial RCA stenosis and otherwise mild luminal irregularities. FINAL IMPRESSION: 1. CAD as described above including 95% ostial RCA, 30% LAD, 30% circumflex stenosis 2. High normal left sided filling pressures 3. iFR RCA abnormal at 0.75 4. S/p PCI RCA with a 2.75 x 15mm Xience MARIE, post dilated with a 3.5 NC balloon PLAN: 1. Aggressive risk factor modification per most recent ACC/AHA guidelines. 2. Continue dual antiplatelets with aspirin and Plavix for minimum of 6 months.
[2023-07-18] MEDS ORDERED: CLOPIDOGREL 75 MG TAB PO SCH (09:00)
[2023-07-18] MEDS ORDERED: ASPIRIN 81 MG PO SCH (09:00)
== END 2023-07-17 20:12 | disposition home or self-care (01) ==
LOC: CATHCVL 11:38 → 6NMEDSUR 14:34 → CATHCVL 20:12
PROVIDERS: ATTEND Internal Medicine
DX: I25.10 Atherosclerotic heart disease of native coronary artery without angina pectoris (principal); E78.5 Hyperlipidemia, unspecified; Z95.5 Presence of coronary angioplasty implant and graft; Z90.13 Acquired absence of bilateral breasts and nipples; Z82.49 Family history of ischemic heart disease and other diseases of the circulatory system; Z79.899 Other long term (current) drug therapy
CPT/HCPCS: 93571; 92978; 93458; 80048; 85025; C9600; C1769 ×3; C1894; C1753; C1874; C1725 ×2; J2250; J2001; J3010; J1644; Q9967; J2305